=== PATIENT | male | born 1965 | race Caucasian/White ===

== ENCOUNTER 2016-06-04 21:52 | Emergency (ER) | payer OTHER ==
--- NOTE | 2016-06-04 22:29 | PHYS DOC ---
Past Medical History Past Medical History: Diabetes-Type II Additional Past Medical Histor: DDD Past Surgical History: Other Additional Past Surgical Histo: RODS IN BOTH LEGS Alcohol Use: Rarely Drug Use: None Adult General Chief Complaint Chief Complaint: DIZZY/LIGHT HEADED HPI HPI This is a 51-year-old male with history of diabetes type 2 who presents to days worth of positional vertigo with one episode of vomiting and ongoing nausea. Patient states the symptoms came on rather suddenly around 10 AM and are elicited when he lies flat. He feels symptomatically better when he is ambulating. Upon my initial assessment, the patient does not appear to be in any distress and is able to answer all my questions appropriately. He states he has never had symptoms like this before. He denies any headache, chest pain, shortness of breath. He denies any problems with his vision. He does state some mild tinnitus in his right ear. Review of Systems Review of Systems Constitutional: Denies fever or chills [] Eyes: Denies change in visual acuity, redness, or eye pain [] HENT: Denies nasal congestion or sore throat [] Respiratory: Denies cough or shortness of breath [] Cardiovascular: No additional information not addressed in HPI [] GI: Denies abdominal pain, has nausea, has vomiting, denies bloody stools or diarrhea [] : Denies dysuria or hematuria [] Musculoskeletal: Denies back pain or joint pain [] Integument: Denies rash or skin lesions [] Neurologic: Denies headache, focal weakness or sensory changes [] Endocrine: Denies polyuria or polydipsia [] Current Medications Current Medications Current Medications Medications (Trade) Dose Ordered Sig/Pravin Start Time Stop Time Status Last Admin Dose Admin Meclizine HCl (Antivert) 50 mg 1X ONCE 06/04/16 22:30 06/04/16 22:31 DC 06/04/16 22:45 50 MG Ondansetron HCl (Zofran) 4 mg 1X ONCE 06/04/16 22:30 06/04/16 22:31 DC 06/04/16 22:37 4 MG Sodium Chloride (Iv Sodium Chloride 0.9% 1000ml Bag) 1,000 ml @ 1,000 mls/hr 1X ONCE 06/04/16 22:30 06/04/16 23:29 06/04/16 22:35 1,000 MLS/HR Allergies Allergies Allergies Coded Allergies Type Severity Reaction Last Updated Verified No Known Drug Allergies 06/04/16 No Physical Exam Physical Exam Constitutional: Well developed, well nourished, no acute distress, non-toxic appearance. [] HENT: Normocephalic, atraumatic, bilateral external ears normal, oropharynx moist, no oral exudates, nose normal. [] Eyes: PERRLA, EOMI, conjunctiva normal, no discharge, right sided horizontal nystagmus. [] Neck: Normal range of motion, no tenderness, supple, no stridor. [] Cardiovascular:Heart rate regular rhythm, no murmur [] Lungs & Thorax: Bilateral breath sounds clear to auscultation [] Abdomen: Bowel sounds normal, soft, no tenderness, no masses, no pulsatile masses. [] Skin: Warm, dry, no erythema, no rash. [] Back: No tenderness, no CVA tenderness. [] Extremities: No tenderness, no cyanosis, no clubbing, ROM intact, no edema. [] Neurologic: Alert and oriented X 3, normal motor function, normal sensory function, no focal deficits noted. [] Psychologic: Affect normal, judgement normal, mood normal. [] Current Patient Data Vital Signs Vital Signs Date Time Temp Pulse Resp B/P Pulse Ox O2 Delivery O2 Flow Rate FiO2 06/04/16 21:56 97.4 70 20 151/82 95 Room Air 97.4 Lab Values Laboratory Tests Test 06/04/16 22:16 06/04/16 22:25 Glucose (Fingerstick) 244mg/dL (70-99) H White Blood Count 7.0x10^3/uL (4.0-11.0) Red Blood Count 5.22x10^6/uL (4.30-5.70) Hemoglobin 15.5g/dL (13.0-17.5) Hematocrit 45.6% (39.0-53.0) Mean Corpuscular Volume 87fL (79-100) Mean Corpuscular Hemoglobin 30pg (25-35) Mean Corpuscular Hemoglobin Concent 34g/dL (31-37) Red Cell Distribution Width 13.8% (11.5-14.5) Platelet Count 191x10^3/uL (140-400) Neutrophils (%) (Auto) 50% (31-73) Lymphocytes (%) (Auto) 40% (24-48) Monocytes (%) (Auto) 8% (0-9) Eosinophils (%) (Auto) 2% (0-3) Basophils (%) (Auto) 1% (0-3) Neutrophils # (Auto) 3.5x10^3uL (1.8-7.7) Lymphocytes # (Auto) 2.8x10^3/uL (1.0-4.8) Monocytes # (Auto) 0.6x10^3/uL (0.0-1.1) Eosinophils # (Auto) 0.1x10^3/uL (0.0-0.7) Basophils # (Auto) 0.1x10^3/uL (0.0-0.2) Sodium Level 143mmol/L (136-145) Potassium Level 3.7mmol/L (3.5-5.1) Chloride Level 105mmol/L (98-107) Carbon Dioxide Level 29mmol/L (21-32) Anion Gap 9 (6-14) Blood Urea Nitrogen 15mg/dL (8-26) Creatinine 0.9mg/dL (0.7-1.3) Estimated GFR (Cockcroft-Gault) 88.3 Glucose Level 254mg/dL (70-99) H Calcium Level 9.2mg/dL (8.5-10.1) Troponin I Quantitative < 0.017ng/mL (0.000-0.055) Laboratory Tests 06/04/16 22:25 Laboratory Tests 06/04/16 22:25 EKG EKG EKG as interpreted by ut shows a sinus rhythm with rate of 70 bpm. There are no obvious ischemic findings. Intervals are normal. Radiology/Procedures Radiology/Procedures PROCEDURE Head CT without contrast. HISTORY Dizziness. TECHNIQUE Computed tomographic images of the head were obtained without contrast. One or more of the following individualized dose reduction techniques were utilized for this examination: 1. Automated exposure control; 2. Adjustment of the mA and/or kV according to patient size; 3. Use of iterative reconstruction technique. COMPARISON None. FINDINGS There is no acute or subacute hemorrhage. There is no mass effect or midline shift. There is no hydrocephalus. There is cerebral volume loss with increased bifrontal extra-axial space. There are subtle areas of hypodensity within the cerebral white matter, artifactual or due to chronic small vessel disease. There is a suspected left posterior fossa arachnoid cyst or relative decreased left cerebellar volume the orbits and visualized portions of the paranasal sinuses mastoid air cells are unremarkable. No calvarial lesion is seen. IMPRESSION 1. No acute intracranial finding. Note is made that MRI is more sensitive for acute infarction. 2. Mild cerebral volume loss, slightly greater than expected for patient age. Electronically signed by: Adrianne Alvarado (Jun 04, 2016 23:02:08) Course & Med Decision Making Course & Med Decision Making Pertinent Labs and Imaging studies reviewed. (See chart for details) This 50-year-old male with ongoing dizziness with positional changes is exhibiting symptoms that are fairly classic for benign positional vertigo. I will obtain laboratory workup and administer fluid bolus, Zofran and meclizine. A head CT will also be obtained as this is his first known episode. His exam was consistent with positional vertigo and I was able to elicit his symptoms with or in the head of the bed. He has right-sided horizontal nystagmus. After workup is unremarkable. His head CT did not reveal any acute intracranial findings. Upon my reassessment, the patient feels much improved after IV fluid bolus and meclizine. The patient will be admitted related around for any of his symptoms. I was unable to elicit his nystagmus with bed changes which is a significant improvement upon his arrival complaint. I believe his uncontrolled glucose is a continuing factor for his vertiginous symptoms. Pt was successfully ambulated around the department without any incident. Dragon Disclaimer Dragon Disclaimer This electronic medical record was generated, in whole or in part, using a voice recognition dictation system. Departure Departure Impression: Primary Impression: Vertigo Disposition: 01 HOME, SELF-CARE Condition: IMPROVED Patient Instructions: Benign Positional Vertigo Additional Instructions: Please take your meclizine for any dizziness. Follow up with your primary care doctor in the next 2-3 days for your symptoms and to have your blood glucose rechecked. Return to the ER if you develop any worsening of your dizziness and lightheadedness. Scripts Meclizine Hcl 25 Mg [id number] Mg PO DAILY #10 TAB Prov:KEYSHAWN STALLINGS DO 06/04/16 KEYSHAWN STALLINGS DO Jun 04, 2016 22:29
[2016-06-04] MEDS ORDERED: ONDANSETRON PF 4 MG/2 ML VIAL. IV ONE (22:30)
[2016-06-04] MEDS ORDERED: MECLIZINE HCL 12.5 MG TABLET. PO ONE (22:30)
[2016-06-04] MEDS ORDERED: IV NORMAL SALINE 1000ML BAG 1,000 ML IV ONE (22:30)
[2016-06-04 22:36] LABS: BASO # 0.1 x10^3/uL (0.0-0.2); BASO % 1 % (0-3); EOS % 2 % (0-3); HEMATOCRIT 45.6 % (39.0-53.0); HEMOGLOBIN 15.5 g/dL (13.0-17.5); LYMPH # 2.8 x10^3/uL (1.0-4.8); LYMPH % 40 % (24-48); MEAN CORPUSCULAR HEMOGLOBIN 30 pg (25-35); MEAN CORPUSCULAR HGB CONC 34 g/dL (31-37); MEAN CORPUSCULAR VOLUME 87 fL (79-100); MONO % 8 % (0-9); NEUT % 50 % (31-73); PLATELET COUNT 191 x10^3/uL (140-400); RED BLOOD COUNT 5.22 x10^6/uL (4.30-5.70); RED CELL DISTRIBUTION WIDTH 13.8 % (11.5-14.5)
[2016-06-04 22:46] LABS: CALCIUM 9.2 mg/dL (8.5-10.1); CREATININE 0.9 mg/dL (0.7-1.3); GFR 88.3; POTASSIUM 3.7 mmol/L (3.5-5.1)
--- NOTE | 2016-06-04 23:03 | RAD ---
PROCEDURE Head CT without contrast. HISTORY Dizziness. TECHNIQUE Computed tomographic images of the head were obtained without contrast. One or more of the following individualized dose reduction techniques were utilized for this examination: 1. Automated exposure control; 2. Adjustment of the mA and/or kV according to patient size; 3. Use of iterative reconstruction technique. COMPARISON None. FINDINGS There is no acute or subacute hemorrhage. There is no mass effect or midline shift. There is no hydrocephalus. There is cerebral volume loss with increased bifrontal extra-axial space. There are subtle areas of hypodensity within the cerebral white matter, artifactual or due to chronic small vessel disease. There is a suspected left posterior fossa arachnoid cyst or relative decreased left cerebellar volume the orbits and visualized portions of the paranasal sinuses mastoid air cells are unremarkable. No calvarial lesion is seen. IMPRESSION 1. No acute intracranial finding. Note is made that MRI is more sensitive for acute infarction. 2. Mild cerebral volume loss, slightly greater than expected for patient age. Electronically signed by: Adrianne Alvarado (Jun 04, 2016 23:02:08)
[2016-06-04] MEDS ORDERED: MECL25TA3 PO (23:25)
[2016-06-04 23:32] VITALS: BP 148/71
--- NOTE | 2016-06-05 06:27 | EKG ---
[facility] [address] [place] [address] Test Date: 2016-06-04 Test Time: 22:12:02 Pat Name: JOSEPH ALCANTAR Department: Room: Gender: M Floor Clerk: : 1965 Requested By: KEYSHAWN STALLINGS Order Number: [id number] Reading MD: Measurements Intervals [place] Rate: 70 P: 56 AR: 186 QRS: 4 QRSD: 82 T: 23 QT: 406 QTc: 441 Interpretive Statements SINUS RHYTHM QRS(T) CONTOUR ABNORMALITY CONSIDER ANTEROSEPTAL MYOCARDIAL DAMAGE T ABNORMALITY IN ANTERIOR LEADS RI6.01 Unconfirmed report No previous ECG available for comparison
== END 2016-06-04 23:40 | disposition home or self-care (01) ==
LOC: ER 21:52
DX: R42 Dizziness and giddiness (principal); E11.9 Type 2 diabetes mellitus without complications
CPT/HCPCS: 36415; 70450; 80048; 82947; 84484; 85027; 93005; 96361; 96374; 99285; J2405; J7030; J8597

== ENCOUNTER 2018-05-21 10:11 | Emergency (ER) | payer OTHER ==
[~2018-05-21] VITALS: Ht 177.8 cm; Wt 163.3 kg
[~2018-05-21 10:11] MED LIST: MECL25TA3 PO
[2018-05-21] MEDS ORDERED: HYDROcodone/APAP 5/325MG 1 TAB TABLET PO ONE (10:30)
[2018-05-21] MEDS ORDERED: LIDOCAINE 1% PF 30 ML VIAL. INJ ONE (10:30)
--- NOTE | 2018-05-21 10:44 | PHYS DOC ---
Past Medical History Past Medical History: Diabetes-Type II Additional Past Medical Histor: DDD (MADYSON CUNHA APRN) Past Surgical History: Other Additional Past Surgical Histo: RODS IN BOTH LEGS (MADYSON CUNHA APRN) Alcohol Use: Rarely Drug Use: None (MADYSON CUNHA APRN) Adult General Chief Complaint Chief Complaint: FINGER INJURY HPI HPI 53-year-old male presents to ER for complaints of accidental laceration to the end of his left index finger. Patient reports he was using a saw when the accident occurred just prior to arrival to ER. Patient states he is up-to-date on tetanus within the past 5 years. Patient reports he is right hand dominant. Patient had ring on left middle finger on arrival which he was able to easily remove. Pt denies any other injury. (MADYSON CUNHA APRN) Review of Systems Review of Systems GI: Denies nausea, vomiting Musculoskeletal: Reports lt index finger laceration Integument: Reports laceration lt index finger Neurologic: Denies focal weakness or sensory changes [] All other systems were reviewed and found to be within normal limits, except as documented in this note. (MADYSON CUNHA APRN) Current Medications Current Medications Current Medications Medications (Trade) Dose Ordered Sig/Pravin Start Time Stop Time Status Last Admin Dose Admin Acetaminophen/ Hydrocodone Bitart (Lortab 5/325) 1 tab 1X ONCE 05/21/18 10:30 05/21/18 10:31 DC 05/21/18 10:39 1 TAB Lidocaine HCl (Xylocaine 1% Pf 30ml Vial) 30 ml 1X ONCE 05/21/18 10:30 05/21/18 10:31 DC 05/21/18 10:52 30 ML Neomycin/ Polymyxin/ Bacitracin (Triple Antibiotic Ointment) 1 pkt 1X ONCE 05/21/18 12:30 05/21/18 12:31 DC 05/21/18 13:00 1 PKT Ondansetron HCl (Zofran) 4 mg 1X ONCE 05/21/18 11:30 05/21/18 11:31 DC 05/21/18 11:35 4 MG Sodium Chloride 500 ml @ 500 mls/hr 1X ONCE 05/21/18 11:30 05/21/18 12:29 DC 05/21/18 11:32 500 MLS/HR (AJITH VAZ MD) Allergies Allergies Allergies Coded Allergies Type Severity Reaction Last Updated Verified No Known Drug Allergies 06/04/16 No (AJITH VAZ MD) Physical Exam Physical Exam Constitutional: Well developed, well nourished, no acute distress, non-toxic appearance. [] HENT: Normocephalic, atraumatic, oropharynx moist Eyes: Pupils equal, conjunctiva normal, no discharge. [] Neck: Normal range of motion, supple Cardiovascular: Heart rate regular Lungs & Thorax: Resp. equal/nonlabored Skin: Warm, dry Extremities: No cyanosis, no clubbing, ROM intact, no edema. Laceration distal end of lt index finger involving medial mid dorsal surface of finger around to palm surface. Small mid medial nail bed lac with nail intact to nailbed- cap refill brisk. 2+ radial. Flexor tendon intact against resistance- full ROM of joints of lt index finger Neurologic: Alert and oriented X 3, normal motor function, normal sensory function, no focal deficits noted. [] Psychologic: Affect normal, judgement normal, mood normal. [] (MADYSON CUNHA APRN) Current Patient Data Vital Signs Vital Signs Date Time Temp Pulse Resp B/P (MAP) Pulse Ox O2 Delivery O2 Flow Rate FiO2 05/21/18 13:30 81 183/98 (126) 97 Room Air 05/21/18 10:39 16 05/21/18 10:23 98.2 98.2 (AJITH VAZ MD) EKG EKG [] (MADYSON CUNHA APRN) Radiology/Procedures Radiology/Procedures Laceration Repair by me: Digital block: dorsal approach at web space lateral/medial approach lt middle finger w/1% lidocaine Anesthesia: 1% lidocaine locally Location: Lt index finger distal end- edge of mid medial nail bed laceration Tendon/Joint/Nerves: No injury- flexor tendon intact against resistance Foreign body: None detected after copious irrigation and exploration Technique: Simple Interrupted Sutures 5.0 nylon #6 Complexity: No subcutaneous sutures/mucosal repair/edge excision Post Closure Length: Approx. 3-4 cm with mult. directions of laceration d/ t saw edge Patient's bleeding was easily controlled in the department and there is no indication of anemia. No evidence of compartment syndrome, neurologic injury, vascular injury, open joint, tendon laceration, or foreign body. Patient is appropriate for outpatient follow up. 48 hour wound check. Scar minimization instructions given. PROCEDURE: FINGER(S) LEFT Left index finger, 3 views, 05/21/2018: HISTORY: Laceration There is mild deformity of the soft tissues distally compatible with a history of a laceration. No underlying fracture or dislocation is evident. IMPRESSION: No acute bony abnormality is detected. Electronically signed by: Kevin Ibrahim MD (05/21/2018 10:47 AM) [facility] DICTATED and SIGNED BY: KEVIN IBRAHIM MD DATE: 05/21/18 1047 (MADYSON CUNHA APRN) Course & Med Decision Making Course & Med Decision Making Pertinent Imaging studies reviewed. (See chart for details) 1210: Patient was evaluated in the ER for complaints of accidental laceration to left index finger from a chop saw he was using. Patient had imaging which was negative for acute findings. There was a delay in laceration repair as patient did not tolerate injections of lidocaine for digital block or local anesthesia. Patient would become diaphoretic and pale and so IV was started normal saline 500 mL bolus was given along with Zofran as patient was nauseated - he had no LOC. Patient had improved symptoms reporting he felt better after flds/zofran and so laceration repair was done by this provider. Patient tolerated procedure well. Had 6 sutures placed for laceration repair w/lac being as well approx. as possible as injury was tearing type injury w/saw blade. Nail bed had sm. lac which required no suture as nail was intact. Following procedure patient remained PMS intact in left upper extremity flexor tendon was intact against resistance and patient had full range of motion of joints in left index finger. Cap refill was brisk. Patient was advised on home wound care and signs and symptoms to return to ER for. Discharge instructions were discussed. Will have aluminum splint applied to lt index finger after drsg application for wound protection. Pt to have sutures removed by PCP in 7 days. (MADYSON CUNHA APRN) Course & Med Decision Making Staff Physician Addendum: I was working in the ER during the course of this patient's visit. I was available for consultation as needed, but I was not directly involved in the care of this patient. (AJITH VAZ MD) Dragon Disclaimer Dragon Disclaimer This electronic medical record was generated, in whole or in part, using a voice recognition dictation system. (MADYSON CUNHA APRN) Departure Departure Impression: Primary Impression: Laceration Additional Impression: Finger injury Disposition: 01 HOME, SELF-CARE Condition: STABLE Referrals: NO PCP (PCP) Patient Instructions: Fingertip Laceration, Laceration Care, Adult, Sutured Wound Care Additional Instructions: Tylenol and/or ibuprofen as needed for pain as directed on container. Wound dry and clean for 24 hours and then shower regular avoid vigorous rubbing of laceration. Triple antibiotic ointment to laceration site 2-3 times a day applying a thin layer to wound. Monitor wound for signs of infection and with any concerns follow-up with your primary doctor for reevaluation. Sutures need to be removed in 7 days by your primary care physician. Problem Qualifiers MADYSON CUNHA APRN May 21, 2018 10:43 AJITH VAZ MD Jun 02, 2018 18:17
--- NOTE | 2018-05-21 10:50 | RAD ---
Left index finger, 3 views, 05/21/2018: HISTORY: Laceration There is mild deformity of the soft tissues distally compatible with a history of a laceration. No underlying fracture or dislocation is evident. IMPRESSION: No acute bony abnormality is detected. Electronically signed by: Kevin Brooks MD (05/21/2018 10:47 AM) [facility]
[2018-05-21] MEDS ORDERED: IV NORMAL SALINE 500ML BAG 500 ML IV ONE (11:30)
[2018-05-21] MEDS ORDERED: ONDANSETRON PF 4 MG/2 ML VIAL. IV ONE (11:30)
[2018-05-21] MEDS ORDERED: NEOMY/BACITR/POLYMYXIN OINT PACKET. TP ONE (12:30)
[2018-05-21 13:30] VITALS: BP 183/98
== END 2018-05-21 13:43 | disposition home or self-care (01) ==
LOC: ER 10:11
DX: S61.211A Laceration without foreign body of left index finger without damage to nail, initial encounter (principal); E11.9 Type 2 diabetes mellitus without complications; W26.8XXA Contact with other sharp object(s), not elsewhere classified, initial encounter; Y93.89 Activity, other specified; Y92.89 Other specified places as the place of occurrence of the external cause; Y99.8 Other external cause status
CPT/HCPCS: 12002; 73140; 96374; 99283; J2405; J7040; 12001